=== PATIENT | female | born 1975 | race Hispanic/Latino ===

== ENCOUNTER 2021-09-21 17:47 | Inpatient (IN) | payer MEDICAID, SELFPAY ==
--- NOTE | ~2021-09-21 | CT_ITS ---
EXAMINATION: CT abdomen pelvis w con DATE: 09/21/2021 20:41 INDICATION: Lower abdominal pain. Back pain. TECHNIQUE: Computed tomography (CT) of the abdomen and pelvis was performed with 100 cc Omnipaque 350 intravenous contrast. Automated exposure control and iterative reconstruction technique were employe d. Exam dose: 1321.06 mGy-cm total exam DLP. COMPARISON: None. FINDINGS: Discoid atelectasis or scarring is noted in the lower lung zones, especially at the middle and left lower lobes, also involving the right lower lobe and lingula. There are bilateral patchy groundglass infiltrates. Normal heart size. No pericardial or pleural effusion. There is diffuse hepatic steatosis. No hepatic space-occupying mass lesion. The gallbladder is unrema rkable. No bile duct or pancreatic duct dilatation. No pancreatic mass lesion or calcification. Allison l splenic size. Normal morphology of the adrenal glands. No renal mass lesion or urinary tract calculus or hydroureteronephrosis. There is moderate diffuse th ickening of the urinary bladder wall. Retroverted uterus. Normal caliber of the abdominal aorta. No intraperitoneal or retroperitoneal or pelvic mass lesion or adenopathy or ascites. Diverticulosis of the sigmoid colon; no CT evidence of diverticulitis. No bowel obstruction or intrap eritoneal free air. There is a nonobstructed nonstrangulated herniation of transverse colon through a left parasagittal i nfraumbilical abdominal wall hernia. There is a lower right anterior pelvic wall large fat-containing hernia. Multiple additional smaller fat-containing ventral abdominal wall hernias are noted. There is a small fat-containing umbilical he rnia. There is a large right parasagittal complicated fluid collection beginning immediately caudal to the umbilicus, consistent with abscess, seroma or hematoma measuring in excess of 5 cm AP and transverse dimension and approximately 7 cm vertical dimension. There is fat stranding in the anterior lower abdominal and pelvic wall bilaterally. There are some shoddy bilateral inguinal lymph nodes. Included skeletal structures are unremarkable. IMPRESSION: Multiple ventral abdominal and pelvic wall fat-containing hernias Large complicated fluid collection consistent with abscess, seroma or hematoma along the right parasa gittal infraumbilical anterior abdominal/pelvic wall; inflammatory soft tissue stranding of the lower anterior abdominal and pelvic wall Hepatic steatosis Diverticulosis of the colon Reviewed, dictated and finalized at [facility]. Reviewed, dictated and finalized at [facility]. IMPRESSION: Multiple ventral abdominal and pelvic wall fat-containing hernias Large complicated fluid collection consistent with abscess, seroma or hematoma along the right parasagittal infraumbilical anterior abdominal/pelvic wall; inf lammatory soft tissue stranding of the lower anterior abdominal and pelvic wall Hepatic steatosis Diverticulosis of the colon
--- NOTE | ~2021-09-21 | XR_ITS ---
EXAMINATION: XR chest 1V portable INDICATION: Chest pain TECHNIQUE: Portable AP chest at 1046 hours COMPARISON: None FINDINGS: The lung volumes are low. There are patchy bilateral opacities. No pleural effusion or pneu mothorax is identified. The cardiomediastinal silhouette is normal. IMPRESSION: 1. Patchy bilateral airspace opacities which could reflect atelectasis versus pneumonia. Reviewed, dictated and finalized at [facility]. IMPRESSION: 1. Patchy bilateral airspace opacities which could reflect atelectasis versus p neumonia.
[2021-09-21 18:10] VITALS: BP 128/82; PULSE 98; RESP 16; TEMP 36.1; O2SAT 99
[2021-09-21 18:40] LABS: Basophils Absolute Auto 0.1 K/mm3 (0.0-0.1); Basophils Percent Auto 0.5 % (0.2-1.2); Eosinophils Percent Auto 0.4 % (0-4.4); Hematocrit 42.9 % (37.0-47.0); Hemoglobin 14.5 g/dL (12.0-15.0); Immature Granulocyte Absolute 0.04 K/mm3 (0.00-0.031); Immature Granulocyte Percent A 0.4 % (0-0.5); Lymphocytes Absolute Auto 1.19 K/mm3 (0.9-3.2); Lymphocytes Percent Auto 10.8 % (18.3-44.2); Mean Corpuscular HGB Conc 33.8 g/dl (32-36); Mean Corpuscular Hemoglobin 29.5 pg (26-34); Mean Corpuscular Volume 87.4 fl (80-100); Mean Platelet Volume 9.5 fl (7.4-10.4); Monocytes Absolute Auto 0.8 K/mm3 (0.1-0.6); Monocytes Percent Auto 7.7 % (2.6-8.5); Neutrophils Absolute Auto 8.8 K/mm3 (1.3-6.7); Neutrophils Percent Auto 80.2 % (45.5-73.1); Platelet Count Result 396 k/mm3 (150-375); Red Blood Count 4.91 M/mm3 (4.2-5.4); Red Cell Distribution Width 12.6 % (11.5-14.5)
[2021-09-21 18:44] LABS: Add Urine Microscopic? YES; Appearance Urine Cloudy (Clear); Bacteria Urine Trace /hpf; Bilirubin Urine Negative (Negative); Blood Urine Negative (Negative); Color Urine Yellow (Yellow); Glucose Urine UA 3+ mg/dL (Negative); Ketones Urine 1+ mg/dL (Negative); Leukocyte Esterase Ur Negative LEU/UL (Negative); Mucus Urine Rare /lpf; Nitrate Urine Negative (Negative); Protein Urine 2+ mg/dL (Negative); Squamous Epithelial Cell Urine Occasional /hpf (Few)
[2021-09-21 18:49] LABS: Specific Grav Ur 1.036 (1.001-1.035)
[2021-09-21 19:19] LABS: Alanine Aminotransferase 44 U/L (4-35); Albumin Level 4.8 g/dL (3.5-5.1); Alkaline Phosphatase 186 U/L (38-126); Anion Gap 11 mmol/L (8-16); Aspartate Amino Transferase 45 U/L (14-36); Bilirubin,Total 0.6 mg/dL (0.2-1.3); Blood Urea Nitrogen 8 mg/dL (7-17); Calcium 9.3 mg/dL (8.4-10.2); Carbon Dioxide 25 mmol/L (22-30); Chloride 99 mmol/L (98-107); Estimated CRCL calculation 126 ml/min; Estimated Glomerular Filt Rate > 60; Glucose 304 mg/dL (65-110); Lipase 34 U/L (23-300); Sodium 135 mmol/L (137-145)
--- NOTE | 2021-09-21 20:17 | ED.ABDPAIN ---
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 She developed pain 2 weeks ago. This pain has been constant and gradually worsen. She also states her pain has now radiated to her lower back pain. She has nausea and vomiting when her pain is severe. She denies fever , chills, or urinary symptoms. She notes she has a hernia from previous surgery and she is unsure if her pain is due to her hernia. Her last surgery was 5 years ago. She has taken tylenol and ibuprofen for her pain without relief. Her pain is currently 10/10. <Kavita Ch MD - Last Filed: 09/21/21 21:24> MD elicited complaint: abdominal pain <Kavita Ch MD - Last Filed: 09/21/21 21:24> Related Data Allergies/Adverse Reactions: Allergies Allergy/AdvReac Type Severity Reaction Status Date / Time No Known Allergies Allergy Verified 09/21/21 20:34 <Kavita Ch MD - Last Filed: 09/21/21 21:24> Review of Systems Review of Systems: All systems reviewed & are unremarkable except as noted in HPI and below <Kavita Ch MD - Last Filed: 09/21/21 21:24> [facility] Past Medical History Medical History: Medical History (Updated 09/21/21 @ 21:23 by Kavita Ch MD) DUB (dysfunctional uterine bleeding) <Kavita Ch MD - Last Filed: 09/21/21 21:24> Surgical History Surgical History: Surgical History (Updated 09/21/21 @ 20:17 by Kavita Ch MD) History of appendectomy <Kavita Ch MD - Last Filed: 09/21/21 21:24> Social History Social History: Social History (Updated 09/21/21 @ 20:18 by Kavita Ch MD) Smoking status: Never smoker <Kavita Ch MD - Last Filed: 09/21/21 21:24> Exam Const: General: no acute distress and alert <Kavita Ch MD - Last Filed: 09/21/21 21:24> Orientation/consciousness: patient oriented x3 <Kavita Ch MD - Last Filed: 09/21/21 21:24> Eyes: EOM: EOMs intact bilaterally <Kavita Ch MD - Last Filed: 09/21/21 21:24> Chest: Chest palpation & inspection: normal inspection of the chest <Kavita Ch MD - Last Filed: 09/21/21 21:24> Resp: Effort & Inspection: normal respiratory effort and no retractions <Kavita Ch MD - Last Filed: 09/21/21 21:24> Auscultation: clear to auscultation bilaterally <Kavita Ch MD - Last Filed: 09/21/21 21:24> Cardio: Rate: regular rate <Kavita Ch MD - Last Filed: 09/21/21 21:24> Rhythm: regular rhythm <Kavita Ch MD - Last Filed: 09/21/21 21:24> Heart sounds: no murmurs <Kavita Ch MD - Last Filed: 09/21/21 21:24> GI: GI Palp: Yes Soft to palpation, Yes Tenderness to palpation present (GI), No Guarding due to palpation present (GI), No Rigid due to palpation and Yes Hernia present (right paraumbilical hernia with tenderness and firmness) <Kavita Ch MD - Last Filed: 09/21/21 21:24> Other: PAtient has old surgical scar from her umbilicus midline to suprapubic, this area is warm, redness and TTP, no drainage <Kavita Ch MD - Last Filed: 09/21/21 21:24> Neuro: General: patient oriented x3, moves all extremities and CN's II-XI intact bilaterally <Kavita Ch MD - Last Filed: 09/21/21 21:24> Psych: Mental Status: mental status grossly normal <Kavita Ch MD - Last Filed: 09/21/21 21:24> Affect: normal affect <Kavita Ch MD - Last Filed: 1
[2021-09-21] MEDS: ONDANSETRON INJ 4 MG/2 ML VIAL IV PUSH (20:26)
[2021-09-21] MEDS: HYDROmorphone HCL INJ (*CRX) 1 MG/ML SYR IV PUSH (20:27)
[2021-09-21] MEDS: LACTATED RINGERS 1,000 ML 999 ML IV CONT (20:31)
[2021-09-21 20:36] VITALS: BP 122/78; PULSE 77; RESP 16; O2SAT 99
[2021-09-21 20:44] LABS: Lactic Acid Reflex 1.6 mmol/L (0.7-2.1)
--- NOTE | 2021-09-21 21:52 | PM.IMHP ---
H&P: HPI History of Present Illness Date/Time: 09/21/21 21:53 Chief Complaint: Abdominal pain Narrative: This is a 45-year-old female with past medical history significant for obesity, ventral hernia repair with wound infection and wound dehiscence status post wound VAC this was roughly 5 years ago. Patient now returns to the emergency room with abdominal pain, small bowel movements, chills, fevers, poor appetite, abdominal wall tenderness with redness ,nausea and vomiting this has been going on for the last 2 weeks or so, she is able to pass flatus, but she has not been eating much. Patient denies any shortness of breath, cough or sputum production. She has been taking [id number] medications for pain with no relieve which has become progressively worse prompting her to come to the emergency room. Preliminary workup was significant for a glucose of 300 alk phos of 186 AST and ALT of 45 and 44 respectively WBC with leukocyte count of 11,000, a CT of abdomen and pelvis was significant for Multiple ventral abdominal and pelvic wall fat-containing hernias,large complicated fluid collection consistent with abscess, seroma or hematoma along the right parasagittal infraumbilical anterior abdominal/pelvic wall; inflammatory soft tissue stranding of the lower anterior abdominal and pelvic wall,hepatic steatosis,diverticulosis of the colon. Decision has been made to admit the patient for further management, evaluation and treatment. Review of Systems Review of Systems: Abdominal wall tenderness, redness, nausea ,vomiting ,constipation, fevers, chills. Constitutional: Constitutional: Reports chills, Reports fever(s), Reports malaise and Reports poor appetite Eyes: Eyes: Denies change in vision ENT: Denies dysphagia, Denies nasal congestion, Denies nasal discharge, Denies nasal obstruction and Denies odynophagia Cardiovascular: Cardiovascular: Denies irregular heart rhythm, Denies claudication, Denies lightheadedness, Denies radiating jaw, neck or arm pain, Denies palpitations, Denies dyspnea, Denies dyspnea on exertion and Denies orthopnea Respiratory: Respiratory: Denies cough and Denies dyspnea Gastrointestinal: Gastrointestinal: Reports constipation (Having small bowel movement), Reports nausea and Reports vomiting Genitourinary: Genitourinary: Denies dysuria and Denies vaginal discharge Musculoskeletal: Musculoskeletal: Reports back pain, Denies arthralgias and Denies joint swelling Comments: Pain radiates to the back Integumentary/Breasts: Skin/Breast: Reports erythema (Midline lower abdomen) Neurologic: Denies focal weakness and Denies Sensory deficit (Neuro) Psychiatric: Psychiatric: Reports no additional psychiatric complaints and Reports as per HPI Endocrine: Comments: Uncontrolled blood sugars Hematologic/Lymphatic: Hematologic/Lymphatic: Reports no additional hematologic/lymphatic complaints and Reports as per HPI Allergic/Immunologic: Allergic/Immunologic: Reports no additional allergic/immunologic complaints and Reports as per HPI PMFSH Past Medical History Medical History (Updated 09/22/21 @ 03:54 by Pancho Silva MD) DUB (dysfunctional uterine bleeding) Surgical History Surgical History (Updated 09/21/21 @ 20:17 by Kavita Ch MD) History of appendectomy Social History Social History (Updated 09/21/21 @ 20:18 by Kavita Ch MD) Smoking status: Never smoker Alcohol intake: never Substance use: never Spiritual care concerns: No Meds Home Medications and Allergies Allergies Allergy/AdvReac Type Severity Reaction Status Date / Time No Known Allergies Allergy Verified 09/21/21 20:34 Vital Signs Vital Signs - 24 hr 09/21/21 18:10 09/21/21 20:36 Temperature 97 F L Pulse Rate 98 77 Respiratory Rate 16 16 Blood Pressure 128/82 122/78 Pulse Oximetry 99 99 Exam Narrative: Patient is laying in gurney Const: General: cooperative, comfortable, no acute distress,
[2021-09-21 22:29] VITALS: BP 126/74; PULSE 77; RESP 18; O2SAT 99
--- NOTE | 2021-09-21 23:09 | ADMGEN ---
This patient, Rachel Oliva, was admitted to 2 Medical Room 259-01. Patient/family oriented to hospital policies and general routines including ID bracelet, bed and alarms, visiting hours, pain management, procedures, bathroom and other care routines, personal items, smoking policy, room service/diet, and visiting hours. Information on how to activate the Rapid Response Team has been discussed. Patient/Family are encouraged to report perceived risks to care and to ask questions if they do not understand what they are told or what they should do. *Stratus utilized during admission and kept at bedside
[2021-09-21 23:15] VITALS: BP 128/68; PULSE 93; RESP 16; TEMP 36.8; O2SAT 94
[2021-09-21 23:16] VITALS: BMI 37.9
[2021-09-22] MEDS: SODIUM CHLORIDE 0.9% IV 1,000 ML 125 ML IV CONT ×3 (00:17→22:38)
[2021-09-22] MEDS: HYDROmorphone HCL INJ (*CRX) 1 MG/ML SYR IV PUSH ×2 (00:17→17:20)
[2021-09-22] MEDS: ONDANSETRON INJ 4 MG/2 ML VIAL IV PUSH ×2 (05:12→17:50)
[2021-09-22 05:15] LABS: Basophils Percent Auto 0.3 % (0.2-1.2); Eosinophils Percent Auto 0.2 % (0-4.4); Hematocrit 36.3 % (37.0-47.0); Hemoglobin 12.2 g/dL (12.0-15.0); Immature Granulocyte Absolute 0.07 K/mm3 (0.00-0.031); Immature Granulocyte Percent A 0.6 % (0-0.5); Lymphocytes Absolute Auto 1.63 K/mm3 (0.9-3.2); Mean Corpuscular HGB Conc 33.6 g/dl (32-36); Mean Corpuscular Hemoglobin 29.4 pg (26-34); Mean Corpuscular Volume 87.5 fl (80-100); Mean Platelet Volume 9.6 fl (7.4-10.4); Monocytes Absolute Auto 1.2 K/mm3 (0.1-0.6); Monocytes Percent Auto 9.5 % (2.6-8.5); Neutrophils Absolute Auto 9.6 K/mm3 (1.3-6.7); Neutrophils Percent Auto 76.4 % (45.5-73.1); Platelet Count Result 374 k/mm3 (150-375); Red Blood Count 4.15 M/mm3 (4.2-5.4); Red Cell Distribution Width 12.6 % (11.5-14.5); White Blood Count 12.6 K/mm3 (4.5-10.0)
[2021-09-22 05:36] LABS: Alanine Aminotransferase 30 U/L (4-35); Albumin Level 2.7 g/dL (3.5-5.1); Alkaline Phosphatase 131 U/L (38-126); Anion Gap 10 mmol/L (8-16); Aspartate Amino Transferase 26 U/L (14-36); Bilirubin,Total 0.7 mg/dL (0.2-1.3); Blood Urea Nitrogen 6 mg/dL (7-17); Calcium 8.3 mg/dL (8.4-10.2); Carbon Dioxide 22 mmol/L (22-30); Chloride 98 mmol/L (98-107); Estimated CRCL calculation 152 ml/min; Estimated Glomerular Filt Rate > 60; Glucose 285 mg/dL (65-110); Potassium 3.9 mmol/L (3.4-5.0); Sodium 130 mmol/L (137-145)
[2021-09-22 06:00] VITALS: BP 122/66; PULSE 92; RESP 18; TEMP 37.5; O2SAT 92
[2021-09-22 06:57] LABS: Glucose Point of Care 254 mg/dl (65-105)
[2021-09-22] MEDS: ENOXAPARIN 40 MG/0.4 ML SYRINGE SUB-Q (09:21)
[2021-09-22] MEDS: INSULIN ASPART (*BKC) 100 UNITS/ML SUB-Q ×3 (09:28→17:54)
[2021-09-22 11:31] LABS: Glucose Point of Care 252 mg/dl (65-105)
[2021-09-22 14:25] VITALS: BP 108/59; PULSE 86; RESP 16; TEMP 38.2; O2SAT 95
[2021-09-22 14:36] VITALS: TEMP 38.2
--- NOTE | 2021-09-22 14:47 | PM.IMPN ---
Progress Note: A&P Assessment and Plan (1) Abscess of postoperative wound of abdominal wall: Code(s): T81.49XA - Infection following a procedure, other surgical site, initial encounter Status: Acute Assessment and Plan: -Patient with appendectomy 5 years ago w/ complications in the postop period with wound infection and dehiscence -Now patient comes back with abdominal pain found to have complex abscess formation and multiple hernias -WBC 12.6, low grade temp 100.7 - Meets SIRS criteria at this time -NPO, IV Abx Vanc and Imipenem, blood cultures, IVF resuscitation, pain control -Further management per general surgery (2) Uncontrolled diabetes mellitus: Code(s): E11.65 - Type 2 diabetes mellitus with hyperglycemia Status: Acute Assessment and Plan: -NPO -Glucose today 285 -Insulin sliding scale increase to moderate dose -Accu-Cheks q.6 -Check A1c -Continue to monitor (3) Elevated liver enzymes: Code(s): R74.8 - Abnormal levels of other serum enzymes Status: Acute Assessment and Plan: -Alk phos 186, ASST of 45, ALT 44 -Check hepatitis panel (4) Sepsis: Code(s): A41.9 - Sepsis, unspecified organism Status: Acute Assessment and Plan: -WBC 12.6, low grade temp 100.7 - Meets SIRS criteria at this time -See above for further details and management Subjective Date/time seen: 09/22/21 10:47 Pt is a 45 yo female w/ hx of DM who presented to ED for abdominal pain x 2 weeks and was subsequently admitted for abdominal wall abscess. She was started on IV abx awaiting general surgery consult. Currently she feels okay, a little better than last night but still nauseated and still having lower abdominal pain which she rates as 5/10. Had 1 episode of vomiting yesterday, none today. Reports chills, no fever or bodyaches. She states she is diabetic and was prescribed oral medication (she does not know the name) but did not start taking it until 4-5 weeks ago. Per H&P and ER note, pt supposedly had ventral hernia repair 5 years ago. When I spoke w/ patient today through data virtualization consultant I clarified that she had an appendectomy 5 years ago with post op complications at which point they noted several hernias but did not repair them. The only abdominal surgery she has had was the appendectomy. Review of Systems Review of Systems: General: Denies fevers, + chills, + fatigue Eyes: Denies vision changes ENT: Denies sore throat Respiratory: Denies cough or shortness of breath Cardiovascular: Denies chest pain, palpitations, or lower extremity edema Gastrointestinal: + abdominal pain, + vomiting, no diarrhea Genitourinary: Denies dysuria or urinary frequency Musculoskeletal: Denies back pain Neurological: Denies headache Integumentary: Denies rash Exam Narrative: General: No acute distress, mildly ill appearing, obese Eyes: PERRL, no scleral icterus HEENT: NCAT, external ears normal, MMM, normal pharynx Respiratory: No respiratory distress, Lungs CTA bilaterally, no wheezing Cardiovascular: RRR, no murmur Abdominal: Soft, non distended, moderate ttp diffusely, no rebound or guarding Musculoskeletal: Moves all 4 extremities, no edema Neurological: A/Ox3, speech normal, no facial asymmetry Skin: Warm, dry, no rashes Psychiatric: Normal affect, normal mood Objective Data Vital Signs Vital Signs: Vital Signs - 24 hr 09/21/21 18:10 09/21/21 20:36 09/21/21 22:29 Temperature 97 F L Pulse Rate 98 77 77 Respiratory Rate 16 16 18 Blood Pressure 128/82 122/78 126/74 Pulse Oximetry 99 99 99 09/21/21 23:15 09/22/21 06:00 09/22/21 14:25 Temperature 98.3 F 99.5 F 100.7 F H Pulse Rate 93 92 86 Respiratory Rate 16 18 16 Blood Pressure 128/68 122/66 108/59 L Pulse Oximetry 94 92 95 09/22/21 14:36 Temperature 100.7 F H Pulse Rate Respiratory Rate Blood Pressure Pulse Oximetry Intake/Output Intake/Output: Intake & Output
[2021-09-22 16:12] VITALS: TEMP 36.8
--- NOTE | 2021-09-22 16:19 | PM.CNGS ---
Assessment and Plan Assessment and plan (1) Abdominal wall abscess: Code(s): L02.211 - Cutaneous abscess of abdominal wall Status: Acute Assessment and Plan: CT scan reviewed and discussed with the patient in detail via the motorcycle mechanic. There is a fluid collection in the lower abdomen that appears to be anterior to the fascia. Clinically, this appears more likely to be an abscess. Less likely a seroma or hematoma. This does not appear to be related to her previous surgery which was 5-6 years ago, but I have requested records from [place], [place] to confirm her surgical history since she was a poor historian. There is a fluctuant area just below the umbilicus that would be appropriate for incision and drainage. I have discussed this with Dr. Velez. He plans on evaluating the patient this afternoon as well. We can consider potentially doing an I&D at the bedside versus having Radiology attempt aspirating this fluid collection and leaving a percutaneous drain in place if the fluid is purulent. Would also plan for cultures. I also discussed what to expect with packing and wound care after an I&D of this large of an abscess if that is what we decide to proceed with. For now, continue broad-spectrum IV antibiotics and repeat labs in the morning. Thank you for allowing us to see the patient in consultation and we will continue to follow along with you. (2) Sepsis: Code(s): A41.9 - Sepsis, unspecified organism Status: Acute Assessment and Plan: SIRS criteria met with leukocytosis and fever with known infection. Secondary to #1 above. Continue broad-spectrum IV abx and IV fluids. Monitor labs. See plan above. (3) Elevated liver enzymes: Code(s): R74.8 - Abnormal levels of other serum enzymes Status: Acute Assessment and Plan: Slight elevation in LFTs. CT suggests hepatic steatosis. Hepatitis panel ordered by Hospitalist. (4) Uncontrolled diabetes mellitus: Code(s): E11.65 - Type 2 diabetes mellitus with hyperglycemia Status: Acute Assessment and Plan: Glucose 200-300's since admission. HgbA1C ordered. I discussed the importance of glycemic control with the patient to help with prevention of future complications or infections. Management per Hospitalist. (5) Hernia, ventral: Code(s): K43.9 - Ventral hernia without obstruction or gangrene Status: Acute Assessment and Plan: Multiple ventral hernias, one with transverse colon that does not appear to be obstructed/incarcerated. Other ventral hernias appear to be containing fat on the CT scan. The largest bulge I feel on exam is in the left lower quadrant but evaluating her hernias are difficult at this time due to her swelling and pain from the abscess. No emergent surgical intervention needed at this time, but we could discuss options for surgical repair in the future once her infection has resolved. (6) Obesity (BMI 30-39.9): Code(s): E66.9 - Obesity, unspecified Status: Acute Assessment and Plan: Encouraged weight loss and lifestyle changes. Additional Plan I have discussed the patient's case and plan of care with Dr. Velez. History of Present Illness Consult details Consult date: 09/22/21 Reason for consult: other (Abdominal wall abscess) Requesting physician: Kavita Ch MD Narrative: This is a 45-year-old Jordanian-speaking female with a history of type 2 diabetes mellitus, who presented to the ER for evaluation of lower abdominal pain. She is primarily Jordanian-speaking, therefore I used the [employer] motorcycle mechanic for our entire conversation and while compiling history. The motorcycle mechanic's name was Sandra. No family was at the bedside. The patient was fairly confused when gathering her surgical history. She believes that she had what sounds like an open appendectomy, with a large lower midline scar, about 5-6 years ago in [place], [place]. She states that she does not remember much from that time and was told
[2021-09-22 17:56] LABS: Glucose Point of Care 204 mg/dl (65-105)
[2021-09-22 21:39] LABS: Glucose Point of Care 192 mg/dl (65-105)
[2021-09-22 22:00] VITALS: BP 134/82; PULSE 87; RESP 16; TEMP 36.3; O2SAT 94
[2021-09-23 05:34] LABS: Basophils Percent Auto 0.4 % (0.2-1.2); Eosinophils Absolute Auto 0.1 K/mm3 (0-0.3); Eosinophils Percent Auto 0.5 % (0-4.4); Hematocrit 35.8 % (37.0-47.0); Hemoglobin 12.1 g/dL (12.0-15.0); Immature Granulocyte Absolute 0.04 K/mm3 (0.00-0.031); Immature Granulocyte Percent A 0.4 % (0-0.5); Lactic Acid Reflex 0.9 mmol/L (0.7-2.1); Lymphocytes Absolute Auto 1.83 K/mm3 (0.9-3.2); Lymphocytes Percent Auto 16.9 % (18.3-44.2); Mean Corpuscular HGB Conc 33.8 g/dl (32-36); Mean Corpuscular Hemoglobin 29.5 pg (26-34); Mean Corpuscular Volume 87.3 fl (80-100); Mean Platelet Volume 9.6 fl (7.4-10.4); Monocytes Absolute Auto 0.9 K/mm3 (0.1-0.6); Monocytes Percent Auto 8.4 % (2.6-8.5); Neutrophils Absolute Auto 7.9 K/mm3 (1.3-6.7); Neutrophils Percent Auto 73.4 % (45.5-73.1); Platelet Count Result 391 k/mm3 (150-375); Red Cell Distribution Width 12.8 % (11.5-14.5); White Blood Count 10.8 K/mm3 (4.5-10.0)
[2021-09-23 05:37] LABS: Anion Gap 8 mmol/L (8-16); Blood Urea Nitrogen 6 mg/dL (7-17); Calcium 7.9 mg/dL (8.4-10.2); Carbon Dioxide 24 mmol/L (22-30); Chloride 99 mmol/L (98-107); Estimated CRCL calculation 152 ml/min; Estimated Glomerular Filt Rate > 60; Glucose 229 mg/dL (65-110); Potassium 3.1 mmol/L (3.4-5.0); Sodium 131 mmol/L (137-145)
[2021-09-23 06:00] VITALS: BP 122/77; PULSE 87; RESP 18; TEMP 36.3; O2SAT 96
[2021-09-23 07:17] LABS: Hepatitis B Surface Antigen Negative (Negative)
[2021-09-23 07:25] LABS: HAV RESULT Negative (Negative); Hepatitis B Core IgM Result Negative (Negative)
[2021-09-23 07:33] LABS: Hepatitis C Virus Antibody Negative (Negative)
[2021-09-23 07:48] LABS: Hemoglobin A1C 11.7 % (<5.7)
[2021-09-23 08:03] LABS: Glucose Point of Care 195 mg/dl (65-105)
[2021-09-23] MEDS: SILVER NITRATE (*SP) STICK 1 EACH TOPICAL (08:35)
[2021-09-23] MEDS: ENOXAPARIN 40 MG/0.4 ML SYRINGE SUB-Q (08:37)
--- NOTE | 2021-09-23 11:34 | P.OP_ITS ---
Procedure Note - Detailed Date of Procedure 09/23/21 Pre-op Diagnosis 1. Superficial Abdominal Wall Abscess 2. Diabetes Mellitus Post-op Diagnosis same Procedure Performed Incision and drainage of abscess of the skin and subcutaneous tissues just below and to the right of the umbilicus and her old midline appendectomy scar Surgeon Anton Velez MD Aitchbone Breaker none Anesthesia local Indications Developing abscess just inferior and to the right of the umbilicus Findings Fairly large cavity underneath skin that was blistering in a triangular 2 x 3 cm area to the right of her midline scar from previous appendectomy. Underneath this area after incised there was a cavity which basically would take pulled and entire on folded 4 x 4. There was significant greenish yellow pus. Description of Procedure The area of the abscess was marked and time-out performed confirming patient and site of required I and D on the abdomen just below and slightly to the right of her umbilicus. Following this the area was prepped with Betadine. The area was draped and local anesthetic infiltrated directly over the area of swelling and abscess formation. After allowing the local anesthetic to work a direct incision was made over the central portion of the area of abscess. Once an opening was established and a swab was used to obtain a Gram stain and C&S. This was sent to the lab for testing. Following this the area was packed with a sterile unfolded 4 x 4. The area was then covered with 4x4s and tape. Implants none Estimated Blood Loss 2 Drains No Packing Yes (Once sterile on folded 4 x 4.) Pathology other (Swab for Gram stain, aerobic and anaerobic C&S) Complications No immediate complications Condition stable Disposition floor (Procedure done at bedside without complication)
[2021-09-23 12:03] LABS: Glucose Point of Care 220 mg/dl (65-105)
[2021-09-23] MEDS: INSULIN ASPART (*BKC) 100 UNITS/ML SUB-Q ×2 (12:17→16:41)
[2021-09-23] MEDS: HYDROmorphone HCL INJ (*CRX) 1 MG/ML SYR IV PUSH (12:18)
[2021-09-23 14:00] VITALS: BP 118/64; PULSE 78; RESP 18; TEMP 36.3; O2SAT 97
--- NOTE | 2021-09-23 14:38 | PM.IMPN ---
Progress Note: A&P Assessment and Plan (1) Abdominal wall abscess: Code(s): L02.211 - Cutaneous abscess of abdominal wall Status: Acute Assessment and Plan: -Patient with appendectomy 5 years ago w/ complications in the postop period with wound infection and dehiscence -Now patient comes back with abdominal pain found to have complex abscess formation and multiple hernias -WBC 12.6, low grade temp 100.7 - SIRS criteria met -Continue IV Abx Vanc and Imipenem, blood cultures, IVF resuscitation, pain control -Bedside I&D performed at bedside by general surgery, see procedure note for further details. -Wound culture sent -Leukocytosis improving. Fever and tachycardia resolved. (2) Uncontrolled diabetes mellitus: Code(s): E11.65 - Type 2 diabetes mellitus with hyperglycemia Status: Acute Assessment and Plan: -Glucose continues to be above 200 despite initiating moderate sliding scale. Will add 10 units of Lantus QHS. -Accu-Cheks q.6 -A1c 11.7 -Will continue with aggressive management in attempt to promote wound healing -Consult placed to Pathology Specialist (3) Elevated liver enzymes: Code(s): R74.8 - Abnormal levels of other serum enzymes Status: Acute Assessment and Plan: -Alk phos 186, ASST of 45, ALT 44 initial labs -CT suggests hepatic steatosis -Liver enzymes have come down today to normal range -Hepatitis panel negative (4) Sepsis: Code(s): A41.9 - Sepsis, unspecified organism Status: Acute Assessment and Plan: -WBC 12.6, low grade temp 100.7 - Meets SIRS criteria at this time -Leukocytosis improving. Fever and tachycardia resolved -See above for further details and management (5) Hernia, ventral: Code(s): K43.9 - Ventral hernia without obstruction or gangrene Status: Acute Assessment and Plan: -Multiple ventral hernias, one with transverse colon that does not appear to be obstructed/incarcerated. Other ventral hernias appear to be containing fat on the CT scan. -Per surgery, no emergent surgical intervention needed at this time, but could discuss options for surgical repair in the future once her infection has resolved on an outpatient basis. -Further management outpatient per general surgery. (6) Obesity (BMI 30-39.9): Code(s): E66.9 - Obesity, unspecified Status: Acute Assessment and Plan: Encouraged weight loss and lifestyle changes. Subjective Date/time seen: 09/23/21 14:38 Interval history: Pt is a 45 yo female w/ hx of DM who presented to ED for abdominal pain x 2 weeks and was subsequently admitted for abdominal wall abscess. She had a bedside I&D performed today by Dr. Velez. She states her pain has improved today. No N/V. No fevers overnight. Review of Systems Review of Systems: General: Denies fevers, no chills, + fatigue Eyes: Denies vision changes ENT: Denies sore throat Respiratory: Denies cough or shortness of breath Cardiovascular: Denies chest pain, palpitations, or lower extremity edema Gastrointestinal: + abdominal pain, no vomiting, no diarrhea Genitourinary: Denies dysuria or urinary frequency Musculoskeletal: Denies back pain Neurological: Denies headache Integumentary: Denies rash Exam Narrative: General: No acute distress, mildly ill appearing, obese Eyes: PERRL, no scleral icterus HEENT: NCAT, external ears normal, MMM Respiratory: No respiratory distress, Lungs CTA bilaterally, no wheezing Cardiovascular: RRR, no murmur Abdominal: Soft, non distended, mild ttp suprapubic and bilateral lower quadrants, no rebound or guarding. Dressing in place C/D/I. Musculoskeletal: Moves all 4 extremities, no edema Neurological: A/Ox3, speech normal, no facial asymmetry Skin: Warm, dry, no rashes Psychiatric: Normal affect, normal mood Objective Data Vital Signs Vital Signs: Vital Signs - 24 hr 09/22/21 16:12 09/22/21 22:00 09/23/21 06
[2021-09-23 16:27] LABS: Glucose Point of Care 318 mg/dl (65-105)
[2021-09-23 21:15] VITALS: BP 106/66; PULSE 73; RESP 16; TEMP 36.9; O2SAT 94
[2021-09-23] MEDS: INSULIN GLARGINE (*BKC) 100 UNITS/ML 10 UNITS SUB-Q (21:23)
[2021-09-24] MEDS: MORPHINE SULFATE (*CRX) 2 MG/ML INJ IV PUSH (02:26)
[2021-09-24 02:35] LABS: Glucose Point of Care 309 mg/dl (65-105)
[2021-09-24 06:00] VITALS: BP 117/72; PULSE 68; RESP 16; TEMP 36.6; O2SAT 96
[2021-09-24 07:49] LABS: Glucose Point of Care 233 mg/dl (65-105)
[2021-09-24] MEDS: INSULIN ASPART (*BKC) 100 UNITS/ML SUB-Q ×3 (07:51→16:46)
[2021-09-24] MEDS: ENOXAPARIN 40 MG/0.4 ML SYRINGE SUB-Q (07:55)
[2021-09-24 09:51] LABS: Basophils Absolute Auto 0.1 K/mm3 (0.0-0.1); Basophils Percent Auto 0.7 % (0.2-1.2); Eosinophils Absolute Auto 0.2 K/mm3 (0-0.3); Eosinophils Percent Auto 2.5 % (0-4.4); Hematocrit 37.7 % (37.0-47.0); Hemoglobin 12.9 g/dL (12.0-15.0); Immature Granulocyte Percent A 1.4 % (0-0.5); Lymphocytes Absolute Auto 1.78 K/mm3 (0.9-3.2); Lymphocytes Percent Auto 25.1 % (18.3-44.2); Mean Corpuscular HGB Conc 34.2 g/dl (32-36); Mean Corpuscular Hemoglobin 29.1 pg (26-34); Mean Corpuscular Volume 85.1 fl (80-100); Mean Platelet Volume 9.5 fl (7.4-10.4); Monocytes Absolute Auto 0.7 K/mm3 (0.1-0.6); Monocytes Percent Auto 10.4 % (2.6-8.5); Neutrophils Absolute Auto 4.2 K/mm3 (1.3-6.7); Neutrophils Percent Auto 59.9 % (45.5-73.1); Platelet Count Result 442 k/mm3 (150-375); Red Blood Count 4.43 M/mm3 (4.2-5.4); Red Cell Distribution Width 12.7 % (11.5-14.5); White Blood Count 7.1 K/mm3 (4.5-10.0)
[2021-09-24 09:56] LABS: Anion Gap 5 mmol/L (8-16); Blood Urea Nitrogen 6 mg/dL (7-17); Calcium 8.5 mg/dL (8.4-10.2); Carbon Dioxide 29 mmol/L (22-30); Chloride 100 mmol/L (98-107); Estimated CRCL calculation 152 ml/min; Estimated Glomerular Filt Rate > 60; Glucose 300 mg/dL (65-110); Potassium 3.2 mmol/L (3.4-5.0); Sodium 134 mmol/L (137-145)
[2021-09-24 10:13] LABS: Vancomycin Trough 13.8 ug/mL (10.0-20.0)
--- NOTE | 2021-09-24 10:34 | PM.IMPN ---
Progress Note: A&P Assessment and Plan (1) Abdominal wall abscess: Code(s): L02.211 - Cutaneous abscess of abdominal wall Status: Acute Assessment and Plan: -Patient with appendectomy 5 years ago w/ complications in the postop period with wound infection and dehiscence -Now patient comes back with abdominal pain found to have complex abscess formation and multiple hernias -WBC 12.6, low grade temp 100.7 - SIRS criteria met - Started on IV Abx Vanc and Imipenem, blood cultures, IVF resuscitation, pain control -Bedside I&D performed at bedside by general surgery, see procedure note for further details. -Wound culture sent, pending -Blood cultures prelim negative -Leukocytosis resolved. Fever and tachycardia resolved. IVF stopped. (2) Uncontrolled diabetes mellitus: Code(s): E11.65 - Type 2 diabetes mellitus with hyperglycemia Status: Acute Assessment and Plan: -Glucose continues to be above 200 despite initiating moderate sliding scale and addition of 10 units of Lantus QHS. Will try adding Metformin 500 mg BID. -Accu-Cheks q.6 -A1c 11.7 -Will continue with aggressive management in attempt to promote wound healing -Consult placed to [employer] (3) Elevated liver enzymes: Code(s): R74.8 - Abnormal levels of other serum enzymes Status: Acute Assessment and Plan: -Alk phos 186, ASST of 45, ALT 44 initial labs -CT suggests hepatic steatosis -Liver enzymes have come down today to normal range -Hepatitis panel negative (4) Sepsis: Code(s): A41.9 - Sepsis, unspecified organism Status: Acute Assessment and Plan: -WBC 12.6, low grade temp 100.7 - Meets SIRS criteria at this time -Leukocytosis improving. Fever and tachycardia resolved -See above for further details and management -Leukocytosis resolved, prelim blood cultures negative (5) Hernia, ventral: Code(s): K43.9 - Ventral hernia without obstruction or gangrene Status: Acute Assessment and Plan: -Multiple ventral hernias, one with transverse colon that does not appear to be obstructed/incarcerated. Other ventral hernias appear to be containing fat on the CT scan. -Per surgery, no emergent surgical intervention needed at this time, but could discuss options for surgical repair in the future once her infection has resolved on an outpatient basis. -Further management outpatient per general surgery (6) Obesity (BMI 30-39.9): Code(s): E66.9 - Obesity, unspecified Status: Acute Assessment and Plan: Encouraged weight loss and lifestyle changes. (7) Chest pain: Code(s): R07.9 - Chest pain, unspecified Status: Acute Assessment and Plan: -Reports chest discomfort and sob w/ exertion, pt initially states started yesterday but also notes it has been going on intermittently for awhile -No pain or sob at rest. Reports cp and sob are very mild. -Check EKG, serial trops, CXR -Consider cardiology consult vs PE workup depending on results of initial workup. She is 99% on RA, no tachycardia, no tachypnea. Suspect could be secondary to body habitus/deconditioning however she does have uncontrolled diabetes and does not follow up regularly with a pcp. Subjective Date/time seen: 09/24/21 10:35 Interval history: Pt is a 45 yo female w/ hx of DM who presented to ED for abdominal pain x 2 weeks and was subsequently admitted for abdominal wall abscess. She had a bedside I&D performed today by Dr. Velez. She states her pain has improved today. No N/V. No fevers overnight. Overall she is feeling much better, however she does now note chest pain and sob with exertion since yesterday afternoon. No pain or sob at rest. Review of Systems Review of Systems: General: Denies fevers, no chills, + fatigue Eyes: Denies vision changes ENT: Denies sore throat Respiratory: + cough (chronic x years), + shortness of breath [facility]
--- NOTE | 2021-09-24 10:35 | ECG_ITS ---
Measurements Intervals [place] Rate: 68 P: 33 RI: 158 QRS: 25 QRSD: 100 T: -13 QT: 402 QTc: 430 Interpretive Statements SINUS RHYTHM DELAYED PRECORDIAL R/S TRANSITION BORDERLINE ST-T WAVE ABNORMALITY- INFERIOR LEADS BASELINE WANDER- I, II, III, V3 BORDERLINE ECG Electronically Signed On 09-24-2021 11:46:03 CDT by Bishnu Metz D.O.
[2021-09-24 11:30] LABS: Troponin I < 0.012 ng/mL (0.000-0.034)
[2021-09-24 11:48] LABS: Glucose Point of Care 317 mg/dl (65-105)
--- NOTE | 2021-09-24 11:50 | PM.PNGS ---
Progress Note: A&P Assessment and Plan (1) Abdominal wall abscess: Code(s): L02.211 - Cutaneous abscess of abdominal wall Status: Acute Assessment and Plan: s/p I and D, cont local wound care, cont abx, ok to dc home from surgical standpoint (2) Sepsis: Code(s): A41.9 - Sepsis, unspecified organism Status: Acute Assessment and Plan: resolved s/p I and D, cont abx, wound care (3) Hernia, ventral: Code(s): K43.9 - Ventral hernia without obstruction or gangrene Status: Acute Assessment and Plan: no acute issues, will followup as outpt Subjective Subjective Date/Time Seen: 09/24/21 11:50 feels better, pain/pressure improved Review of Systems Review of Systems: All systems reviewed & are unremarkable except as noted in HPI and below Exam Const: General: cooperative, comfortable and no acute distress Resp: Auscultation: clear to auscultation bilaterally Cardio: Rate: regular rate Rhythm: regular rhythm GI: Inspection: normal to inspection, non-distended and incision GI Palp: Yes Soft to palpation, Yes Tenderness to palpation present (GI), No Guarding due to palpation present (GI) and No Rigid due to palpation Other: wound - packed, mod serous drainage, mild TTP Objective Data Vital Signs Vital Signs: Vital Signs - 24 hr 09/23/21 14:00 09/23/21 21:15 09/24/21 06:00 Temperature 36.3 C L 36.9 C 36.6 C Pulse Rate 78 73 68 Respiratory Rate 18 16 16 Blood Pressure 118/64 106/66 117/72 Pulse Oximetry 97 94 96 Intake/Output Intake/Output: Intake & Output 09/21/21 09/22/21 09/23/21 09/24/21 23:59 23:59 23:59 23:59 Intake Total 1100 3600 3120 1570 Output Total 1700 2600 Balance 1100 5065 509 0547 Meds/Results Medications: Active Medications Generic Name Dose Route Start Last Admin Trade Name Freq PRN Reason Stop Dose Admin Enoxaparin Sodium 40 mg 09/22/21 09:00 09/24/21 07:55 Enoxaparin 40 Mg/0.4 Ml Syringe SUB-Q 40 mg DAILY JOAN Administration Hydromorphone HCl 1 mg 09/22/21 15:17 09/23/21 12:18 Hydromorphone Hcl Inj (*Crx) 1 Mg/Ml Syr IV PUSH 1 mg Q4H PRN Administration Pain Rated 7-10 Imipenem/Cilastatin Sodium 500 mg in 100 mls @ 300 mls/hr 09/22/21 04:00 09/24/21 09:31 Primaxin 500 Mg/D5w 100 Ml IVPB Infused Q6H JOAN Infusion Vancomycin HCl 1,750 mg in 500 mls @ 250 mls/hr 09/24/21 10:00 09/24/21 11:16 Vancomycin 1,750 Mg/D5w 500 Ml IVPB 250 mls/hr Q8H JOAN Administration Insulin Aspart 3 - 6 units 09/22/21 17:00 09/24/21 07:51 Insulin Aspart (*Bkc) 100 Units/Ml SUB-Q 3 units TIDWM JOAN Administration Protocol Insulin Glargine 10 units 09/23/21 21:00 09/23/21 21:23 Insulin Glargine (*Bkc) 100 Units/Ml SUB-Q 10 units HS JOAN Administration Metformin HCl 500 mg 09/24/21 17:00 Metformin Hcl 500 Mg Tablet PO BIDWM JOAN Morphine Sulfate 2 mg 09/22/21 15:15 09/24/21 02:26 Morphine Sulfate (*Crx) 2 Mg/Ml Inj IV PUSH 2 mg Q4H PRN Administration Pain Rated 4-6 Ondansetron HCl 4 mg 09/21/21 21:51 09/22/21 17:50 Ondansetron Inj 4 Mg/2 Ml Vial IV PUSH 4 mg Q4H PRN Administration Nausea Radiology Results: ITS Impressions Abdomen/Pelvis CT 09/21/21 20:44 IMPRESSION: Multiple ventral abdominal and pelvic wall fat-containing hernias Large complicated fluid collection consistent with abscess, seroma or hematoma along the right parasagittal infraumbilical anterior abdominal/pelvic wall; inflammatory soft tissue stranding of the lower anterior abdominal and pelvic wall Hepatic steatosis Diverticulosis of the colon Chest X-Ray 09/24/21 10:57 IMPRESSION: 1. Patchy bilateral airspace opacities which could reflect atelectasis versus pneumonia. Labs Labs: Laboratory Results - last 24 hr 09/23/21 09/23/21 09/23/21 11:59 16:21 16:57 WBC RBC Hgb Hct MCV MCH MCHC RDW
[2021-09-24 14:00] VITALS: BP 115/70; PULSE 77; RESP 16; TEMP 36.9; O2SAT 96; BMI 37.9
[2021-09-24 14:34] LABS: Troponin I < 0.012 ng/mL (0.000-0.034)
[2021-09-24 16:33] LABS: Glucose Point of Care 270 mg/dl (65-105)
[2021-09-24] MEDS: metFORMIN HCL 500 MG TABLET PO (16:47)
[2021-09-24] MEDS: INSULIN GLARGINE (*BKC) 100 UNITS/ML 10 UNITS SUB-Q (21:19)
[2021-09-24] MEDS: INSULIN ASPART (*BKC) 100 UNITS/ML 8 UNITS SUB-Q (21:22)
[2021-09-24 21:23] VITALS: BP 124/70; PULSE 77; RESP 20; TEMP 36.6; O2SAT 96
[2021-09-24 23:00] LABS: Glucose Point of Care 336 mg/dl (65-105)
--- NOTE | 2021-09-25 | ECHO_ITS ---
Patient Info Name: Rachel Oliva Age: 45 years : 1975 Gender: Female Ht: 62 in Wt: 207 lbs BSA: 2.07 m2 HR: 72 bpm BP: 117 / 71 mmHg Heart Rhythm: Sinus Rhythm Technical Quality: Fair Exam Date: 09/25/2021 10:59 AM Exam Location: [facility] Exam Room: 259 Patient Status: Inpatient Admit Date: 09/23/2021 Staff Ordering Physician: Wendie Alvarado PA-C Hostler Helper: Mikala Azar RDCS Attending Provider: Wendie Alvarado PA-C Referring Physician: Jenny BAEZA; Exam Type: CA echo doppler color flow Study Info Indications - chest pain obesity marinelli Complete two-dimensional, color flow and Doppler transthoracic echocardiogram is performed. Summary 1. Technically difficult study with limited views. Regional wall motion assessment limited due to poor endomyocardial border definition several views. 2. Left ventricular chamber dimension is normal. 3. Left ventricular systolic function is normal, estimated at 65-70%. 4. There is no increased left ventricular wall thickness. 5. The left ventricular diastolic function is normal. 6. There is trace tricuspid valve regurgitation. 7. Mild pulmonary hypertension, estimated pulmonary arterial systolic pressure is 35-40 mmHg. Left Ventricle Left ventricular chamber dimension is normal. Left ventricular systolic function is normal, estimated at 65-70%. There is no increased left ventricular wall thickness. The left ventricular diastolic function is normal. Right Ventricle Right ventricular chamber dimension is normal. Right ventricular systolic function is normal. Left Atria Left atrial chamber dimension is normal. Right Atria Right atrial chamber dimension is normal. Aortic Valve The aortic valve is probable trileaflet. There is no aortic valve stenosis. There is no aortic valve regurgitation. Pulmonic Valve The pulmonic valve is not well visualized. There is trace pulmonic regurgitation. Mitral Valve The mitral valve has normal leaflets. There is trace mitral valve regurgitation. Tricuspid Valve The tricuspid valve leaflets are normal. There is trace tricuspid valve regurgitation. Mild pulmonary hypertension, estimated pulmonary arterial systolic pressure is 35-40 mmHg. Pericardium/Pleural The pericardium appears normal. There is no pericardial effusion. Aorta The aortic root size at the sinus of Valsalva is normal. Left Ventricular Outflow Tract Name Value Normal LVOT 2D LVOT Diameter 2.0 cm LVOT Doppler LVOT Peak Gradient 6 mmHg LVOT Mean Gradient 4 mmHg LVOT VTI 27 cm LVOT VTI/AV VTI Ratio 0.8 LVOT Stroke Volume 82 ml LVOT CO 17.5 l/min LVOT CI 8.4 l/min/m2 Pulmonic Valve Name Value Normal PV Dopp
[2021-09-25 05:05] VITALS: BP 117/71; PULSE 77; RESP 20; TEMP 36.4; O2SAT 100
[2021-09-25] MEDS: ONDANSETRON INJ 4 MG/2 ML VIAL IV PUSH (06:15)
[2021-09-25 08:04] LABS: Glucose Point of Care 196 mg/dl (65-105)
--- NOTE | 2021-09-25 08:40 | PM.PNGS ---
Progress Note: A&P Assessment and Plan (1) Abdominal wall abscess: Code(s): L02.211 - Cutaneous abscess of abdominal wall Status: Acute Assessment and Plan: doing well, local wound care c W to D drsg BID, abx, cultures pending, ok to dc home c f/u c Dr Velez in 1 wk Subjective Subjective Date/Time Seen: 09/25/21 08:40 feels better, some abdominal soreness Review of Systems Review of Systems: All systems reviewed & are unremarkable except as noted in HPI and below Exam Const: General: cooperative, comfortable and no acute distress Orientation/consciousness: patient oriented x3 Resp: Auscultation: clear to auscultation bilaterally Cardio: Rate: regular rate Rhythm: regular rhythm GI: Inspection: normal to inspection, non-distended and incision GI Palp: Yes Soft to palpation and Yes Tenderness to palpation present (GI) Other: wound examined and some fibrinous material debrided, packing removed, will do W to D c NS BID Objective Data Vital Signs Vital Signs: Vital Signs - 24 hr 09/24/21 14:00 09/24/21 21:23 09/25/21 05:05 Temperature 36.9 C 36.6 C 36.4 C L Pulse Rate 77 77 77 Respiratory Rate 16 20 20 Blood Pressure 115/70 124/70 117/71 Pulse Oximetry 96 96 100 Intake/Output Intake/Output: Intake & Output 09/22/21 09/23/21 09/24/21 09/25/21 23:59 23:59 23:59 23:59 Intake Total 3600 3120 3272 1090 Output Total 1700 2600 1800 800 Balance 5853 854 2072 290 Meds/Results Medications: Active Medications Generic Name Dose Route Start Last Admin Trade Name Freq PRN Reason Stop Dose Admin Dextrose 12.5 gm 09/25/21 08:04 Dextrose 50% 25 Gm/50 Ml Syringe IV PUSH PRN PRN Hypoglycemia Protocol Enoxaparin Sodium 40 mg 09/22/21 09:00 09/24/21 07:55 Enoxaparin 40 Mg/0.4 Ml Syringe SUB-Q 40 mg DAILY JOAN Administration Glucagon 1 mg 09/25/21 08:04 Glucagon For Inj 1 Mg Vial IM PRN PRN Hypoglycemia Protocol Glucose 15 gm 09/25/21 08:04 Glucose Oral Gel 15 Gm Of Glucse In 37.5 Gm Tube PO PRN PRN Hypoglycemia Protocol Hydromorphone HCl 1 mg 09/22/21 15:17 09/23/21 12:18 Hydromorphone Hcl Inj (*Crx) 1 Mg/Ml Syr IV PUSH 1 mg Q4H PRN Administration Pain Rated 7-10 Imipenem/Cilastatin Sodium 500 mg in 100 mls @ 300 mls/hr 09/22/21 04:00 09/25/21 05:58 Primaxin 500 Mg/D5w 100 Ml IVPB Infused Q6H JOAN Infusion Vancomycin HCl 1,750 mg in 500 mls @ 250 mls/hr 09/24/21 10:00 09/25/21 04:55 Vancomycin 1,750 Mg/D5w 500 Ml IVPB Infused Q8H JOAN Infusion Dextrose 1,000 mls @ 100 mls/hr 09/25/21 08:04 Dextrose 5% 1,000 Ml IVPB PRN PRN Hypoglycemia Protocol Insulin Aspart 4 - 8 units 09/25/21 08:10 Insulin Aspart (*Bkc) 100 Units/Ml SUB-Q TIDWM JOAN Protocol Insulin Glargine 20 units 09/25/21 21:00 Insulin Glargine (*Bkc) 100 Units/Ml SUB-Q HS JOAN Metformin HCl 500 mg 09/24/21 17:00 09/24/21 16:47 Metformin Hcl 500 Mg Tablet PO 500 mg BIDWM JOAN Administration Morphine Sulfate 2 mg 09/22/21 15:15 09/24/21 02:26 Morphine Sulfate (*Crx) 2 Mg/Ml Inj IV PUSH 2 mg Q4H PRN Administration Pain Rated 4-6 Ondansetron HCl 4 mg 09/21/21 21:51 09/25/21 06:15 Ondansetron Inj 4 Mg/2 Ml Vial IV PUSH 4 mg Q4H PRN Administration Nausea Radiology Results: ITS Impressions Abdomen/Pelvis CT 09/21/21 20:44 IMPRESSION: Multiple ventral abdominal and pelvic wall fat-containing hernias Large complicated fluid collection consistent with abscess, seroma or hematoma along the right parasagittal infraumbilical anterior abdominal/pelvic wall; inflammatory soft tissue stranding of the lower anterior abdominal and pelvic wall Hepatic steatosis Diverticulosis of the colon Chest X-Ray 09/24/21 10:57 IMPRESSION: 1. Patchy bilateral airspace opacities which could reflect atelectasis versus pneumonia.
[2021-09-25 09:10] LABS: Anion Gap 7 mmol/L (8-16); Basophils Percent Auto 0.6 % (0.2-1.2); Blood Urea Nitrogen 6 mg/dL (7-17); Calcium 8.7 mg/dL (8.4-10.2); Carbon Dioxide 28 mmol/L (22-30); Chloride 100 mmol/L (98-107); Eosinophils Absolute Auto 0.2 K/mm3 (0-0.3); Estimated CRCL calculation 152 ml/min; Estimated Glomerular Filt Rate > 60; Glucose 253 mg/dL (65-110); Hematocrit 39.3 % (37.0-47.0); Hemoglobin 13.4 g/dL (12.0-15.0); Immature Granulocyte Absolute 0.03 K/mm3 (0.00-0.031); Immature Granulocyte Percent A 0.4 % (0-0.5); Lymphocytes Absolute Auto 1.87 K/mm3 (0.9-3.2); Lymphocytes Percent Auto 27.6 % (18.3-44.2); Mean Corpuscular HGB Conc 34.1 g/dl (32-36); Mean Corpuscular Hemoglobin 29.7 pg (26-34); Mean Corpuscular Volume 87.1 fl (80-100); Mean Platelet Volume 9.3 fl (7.4-10.4); Monocytes Absolute Auto 0.6 K/mm3 (0.1-0.6); Monocytes Percent Auto 8.7 % (2.6-8.5); Neutrophils Percent Auto 59.7 % (45.5-73.1); Platelet Count Result 469 k/mm3 (150-375); Potassium 3.3 mmol/L (3.4-5.0); Red Blood Count 4.51 M/mm3 (4.2-5.4); Red Cell Distribution Width 12.8 % (11.5-14.5); Sodium 135 mmol/L (137-145); White Blood Count 6.8 K/mm3 (4.5-10.0)
[2021-09-25 09:16] LABS: Vancomycin Trough 19.2 ug/mL (10.0-20.0)
[2021-09-25] MEDS: ENOXAPARIN 40 MG/0.4 ML SYRINGE SUB-Q (09:37)
[2021-09-25] MEDS: metFORMIN HCL 500 MG TABLET PO (09:37)
[2021-09-25 11:46] LABS: Glucose Point of Care 267 mg/dl (65-105)
[2021-09-25] MEDS: INSULIN ASPART (*BKC) 100 UNITS/ML SUB-Q (12:34)
--- NOTE | 2021-09-25 13:29 | PM.DS ---
DS: Admitting Diagnosis Discharge Date 09/25/21 Admitting Diagnosis abdominal wound, sepsis DS: Discharge Diagnosis Discharge Diagnosis (1) Abdominal wall abscess: Code(s): L02.211 - Cutaneous abscess of abdominal wall Status: Acute Assessment and Plan: -Patient with appendectomy 5 years ago w/ complications in the postop period with wound infection and dehiscence -Now patient comes back with abdominal pain found to have complex abscess formation and multiple hernias -was given iv abx and transitioned to augmentin and doxy at d/c -Bedside I&D performed at bedside by general surgery. They plan to follow up with her outpt -Wound culture growing Streptococcus anginosus and Bacteroides fragilis, sensitivities pending at discharge and will be monitored until finalized -Blood cultures have no growth to date but will be monitored until finalized -Leukocytosis resolved. Fever and tachycardia resolved. (2) Uncontrolled diabetes mellitus: Code(s): E11.65 - Type 2 diabetes mellitus with hyperglycemia Status: Acute Assessment and Plan: Patient is very adamant about not doing insulin. I have given her metformin and glipizide as well as a glucose monitor. We had a long discussion about diabetes and information was given in [place]. She is going to establish with a primary care physician so this could be monitored. We discussed signs and symptoms of hypoglycemia as well. (3) Elevated liver enzymes: Code(s): R74.8 - Abnormal levels of other serum enzymes Status: Acute Assessment and Plan: Slightly elevated on admission which have normalized throughout her stay -CT suggests hepatic steatosis -Hepatitis panel negative (4) Sepsis: Code(s): A41.9 - Sepsis, unspecified organism Status: Acute Assessment and Plan: Noted on admission with elevated leukocytosis and and temperature, all have resolved -secondary to above (5) Hernia, ventral: Code(s): K43.9 - Ventral hernia without obstruction or gangrene Status: Acute Assessment and Plan: -Multiple ventral hernias, one with transverse colon that does not appear to be obstructed/incarcerated. Other ventral hernias appear to be containing fat on the CT scan. -Per surgery, no emergent surgical intervention needed at this time, but could discuss options for surgical repair in the future once her infection has resolved on an outpatient basis. -Further management outpatient per general surgery (6) Obesity (BMI 30-39.9): Code(s): E66.9 - Obesity, unspecified Status: Acute Assessment and Plan: Encouraged weight loss and lifestyle changes. (7) Chest pain: Code(s): R07.9 - Chest pain, unspecified Status: Acute Assessment and Plan: -Reports chest discomfort and sob w/ exertion, pt initially states started earlier in the stay but also notes it has been going on intermittently for awhile. The day of discharge she said it has completely resolved -echo shows a normal EF with no significant abnormalities. It does show mild pulmonary hypertension. -chest x-ray and CT show possible pneumonia. Patient states she is not really coughing but had a mild one earlier in the stay. Antibiotics Augmentin and doxycycline were given at discharge to treat possible pneumonia as the cause. she is to follow up with a pcp after discharge if this continues. -PE seems less likely since patient is chest pain and shortness of breath have resolved DS: Summary Hospital Course Hospital Course: Date of service 09/25/2021 Patient is a 45-year-old female who presented emergency room on 09-21-21 for abdominal pain and wound that was gradually worsening. Vitals in the ER were temperature 97?, pulse 98, respiratory rate 16, blood pressure 128/82, pulse ox 99 on room air. Initial white blood cell count 11.0. Renal glucose 304. UA not indicative of infection. Lactic acid normal. Abd
[2021-09-25 14:00] VITALS: BP 123/76; PULSE 77; RESP 20; TEMP 36.5; O2SAT 94
--- NOTE | 2021-09-29 09:58 | PC.NURSE ---
Blood cx are negative. Wound cx anaerobic shows Moderate growth of bacteroides fragilis. Aerobic cx shows light growth of Strep anginosus. HONEY Priest.
== END 2021-09-25 17:19 | disposition home or self-care (01) | DRG 710 ==
LOC: ANHED 21:53 → ANH2MED 22:21
PROVIDERS: Emergency Medicine; Physician Assistant; Surgery; Admitting Provider Internal Medicine; Emergency Provider General Practice; Visit Provider Physician Assistant
DX: A41.9 Sepsis, unspecified organism (principal); L02.211 Cutaneous abscess of abdominal wall; B95.4 Other streptococcus as the cause of diseases classified elsewhere; B96.6 Bacteroides fragilis [B. fragilis] as the cause of diseases classified elsewhere; K43.9 Ventral hernia without obstruction or gangrene; J18.9 Pneumonia, unspecified organism; E11.65 Type 2 diabetes mellitus with hyperglycemia; K76.0 Fatty (change of) liver, not elsewhere classified; E66.9 Obesity, unspecified; Z68.37 Body mass index [BMI] 37.0-37.9, adult; Z90.49 Acquired absence of other specified parts of digestive tract
CPT/HCPCS: 36415; 71045; 74177; 80048; 80053; 80074; 80202; 81001; 81025; 82948; 83036; 83605; 83690; 83735; 84484; 85025; 87040; 87070; 87075; 87076; 87077; 87205; 93005; 93306; 96361; 96365; 96366; 96367; 96372; 96375; 96376; 99285; A9270; G0378; G0379; J0131; J0743; J1170; J1650; J1815; J2270; J2405; J3370; J7030; J7040; J7120; Q9967

== ENCOUNTER 2021-12-27 12:13 | Outpatient (CLI) | payer SELFPAY ==
[2021-12-27 13:37] LABS: Add Urine Microscopic? YES; Appearance Urine Clear (Clear); Bilirubin Urine Negative (Negative); Blood Urine Negative (Negative); Color Urine Straw (Yellow); Glucose Urine UA 3+ mg/dL (Negative); Ketones Urine Negative (Negative); Leukocyte Esterase Ur Negative LEU/UL (Negative); Nitrate Urine Negative (Negative); Protein Urine Negative (Negative); RBC Urine 0-2 /hpf (0-2); Squamous Epithelial Cell Urine Rare /hpf (Few); Urobilinogen Urine Negative mg/dL (<2.0); WBC Urine 0-3 /hpf
[2021-12-27 13:38] LABS: Specific Grav Ur 1.032 (1.001-1.035)
== END 2021-12-27 12:14 | disposition home or self-care (01) ==
LOC: ANHLAB 12:14
PROVIDERS: Visit Provider Nurse Practitioner Family
DX: N89.8 Other specified noninflammatory disorders of vagina (principal)
CPT/HCPCS: 81001

== ENCOUNTER 2022-01-05 21:33 | Emergency (ER) | payer SELFPAY ==
--- NOTE | ~2022-01-05 | CT_ITS ---
EXAMINATION: CT abdomen pelvis w con DATE: 01/06/2022 04:00 INDICATION: Lower/mid abdominal pain for 2 days. TECHNIQUE: Computed tomography (CT) of the abdomen and pelvis was performed with 100 cc Omnipaque 350 intravenous contrast. Automated exposure control and iterative reconstruction technique were employe d. Exam dose: 1209.35 mGy-cm total exam DLP. COMPARISON: 09/21/2021 CT abdomen pelvis FINDINGS: There is patchy atelectasis in the lower lung zones. Normal heart size. Trace pericardial fluid. No pleural effusion. The liver, gallbladder, bile ducts, spleen, pancreas, pancreatic duct, and adrenal glands and kidneys are unremarkable. Normal caliber of the abdominal aorta. No intraperitoneal or retroperitoneal or pe lvic mass lesion or adenopathy or ascites. Small fat-containing umbilical hernia. There is nearly complete resolution of the largest, located fluid collection along the right parasagi ttal infraumbilical anterior abdominal/pelvic wall since 09/21/2021. There are infraumbilical ventral abdominal wall hernias, one containing nonobstructed transverse colo n, a lower ventral hernia containing small bowel; the small bowel herniation is a new finding since 11/21/2020. The herniated small bowel is distended with fluid. And measures up to 2.2 cm maximal diamet er. Mild partial closed loop obstruction is not excluded. Surgical consultation is recommended. Urinary bladder, uterus and adnexal areas are unremarkable. No intraperitoneal free air. No suspicious osteolytic or osteoblastic lesions are noted. IMPRESSION: Interval herniation of small bowel through a pre-existing infraumbilical ventral abdomin al wall hernia since 09/21/2021 with possible associated mild partial closed loop small bowel obstruct ion Chronic infraumbilical ventral abdominal wall hernia containing nonobstructed colon Diminished nearly resolved fluid collection along the infraumbilical anterior abdominal wall Reviewed, dictated and finalized at [facility] Reviewed, dictated and finalized at [facility] IMPRESSION: Interval herniation of small bowel through a pre-existing infraumb ilical ventral abdominal wall hernia since 09/21/2021 with possible associated m ild partial closed loop small bowel obstruction Chronic infraumbilical ventral abdominal wall hernia containing nonobstructed c olon Diminished nearly resolved fluid collection along the infraumbilical anterior a bdominal wall
[2022-01-05 21:40] VITALS: BP 140/81; PULSE 82; RESP 18; TEMP 36.4; O2SAT 99
[2022-01-05 23:38] LABS: Basophils Absolute Auto 0.1 K/mm3 (0.0-0.1); Basophils Percent Auto 0.7 % (0.2-1.2); Eosinophils Absolute Auto 0.1 K/mm3 (0-0.3); Eosinophils Percent Auto 1.9 % (0-4.4); Hematocrit 40.8 % (37.0-47.0); Hemoglobin 14.3 g/dL (12.0-15.0); Immature Granulocyte Absolute 0.01 K/mm3 (0.00-0.031); Immature Granulocyte Percent A 0.1 % (0-0.5); Lymphocytes Percent Auto 39.3 % (18.3-44.2); Mean Corpuscular Hemoglobin 29.6 pg (26-34); Mean Corpuscular Volume 84.5 fl (80-100); Mean Platelet Volume 9.7 fl (7.4-10.4); Monocytes Absolute Auto 0.6 K/mm3 (0.1-0.6); Monocytes Percent Auto 8.7 % (2.6-8.5); Neutrophils Absolute Auto 3.6 K/mm3 (1.3-6.7); Neutrophils Percent Auto 49.3 % (45.5-73.1); Platelet Count Result 285 k/mm3 (150-375); Red Blood Count 4.83 M/mm3 (4.2-5.4); Red Cell Distribution Width 13.1 % (11.5-14.5); White Blood Count 7.4 K/mm3 (4.5-10.0)
[2022-01-06 00:07] LABS: Alanine Aminotransferase 172 U/L (4-35); Albumin Level 3.8 g/dL (3.5-5.1); Alkaline Phosphatase 108 U/L (38-126); Anion Gap 9 mmol/L (8-16); Aspartate Amino Transferase 103 U/L (14-36); Bilirubin,Total 0.3 mg/dL (0.2-1.3); Blood Urea Nitrogen 11 mg/dL (7-17); Carbon Dioxide 22 mmol/L (22-30); Chloride 102 mmol/L (98-107); Estimated CRCL calculation 160 ml/min; Estimated Glomerular Filt Rate > 60; Glucose 416 mg/dL (65-110); Potassium 4.2 mmol/L (3.4-5.0); Sodium 133 mmol/L (137-145)
[2022-01-06] MEDS: KETOROLAC 30 MG/ML VIAL (*BKC) IV PUSH (03:25)
[2022-01-06] MEDS: SODIUM CHLORIDE 0.9% IV 1,000 ML 999 ML IV CONT (03:26)
[2022-01-06 03:30] VITALS: BP 112/74; PULSE 62; RESP 16; TEMP 36.6; O2SAT 99
[2022-01-06 03:37] LABS: Add Urine Microscopic? YES; Appearance Urine Clear (Clear); Bilirubin Urine Negative (Negative); Blood Urine Negative (Negative); Color Urine Colorless (Yellow); Glucose Urine UA 3+ mg/dL (Negative); Ketones Urine Negative (Negative); Leukocyte Esterase Ur Negative LEU/UL (Negative); Mucus Urine Rare /lpf; Nitrate Urine Negative (Negative); Protein Urine Negative (Negative); RBC Urine 0-2 /hpf (0-2); Specific Grav Ur 1.029 (1.001-1.035); Squamous Epithelial Cell Urine Rare /hpf (Few); Urobilinogen Urine Negative mg/dL (<2.0)
--- NOTE | 2022-01-06 03:43 | PC.NURSE ---
patient to ct at this time.
[2022-01-06 04:41] VITALS: BP 118/72; PULSE 70; RESP 18; O2SAT 98
--- NOTE | 2022-01-06 04:48 | ED.GENADULT ---
HPI - General Adult General Chief complaint: Abdominal Pain Stated complaint: abd pain Time Seen by Provider: 01/06/22 01:58 Source: RN notes reviewed History of Present Illness HPI narrative: Patient presents emergency department from home for abdominal wound. Patient states she had a history of an abscess in her lower midline abdominal wall from site of previous surgical incision she was seen at our hospital and October and at that time been seen by general surgery she has been following up with general surgery has been packing the wound has been healing well but she noted that it began to have drainage today she is with this she began to have some lower back pain she denies any fevers or chills abdominal pain nausea vomiting or any other symptoms states she is not currently on any antibiotics Related Data Home Medications Medication Instructions Recorded Confirmed ibuprofen 200 mg capsule 200 mg PO Q6H PRN 10/18/21 12/28/21 Allergies Allergy/AdvReac Type Severity Reaction Status Date / Time No Known Allergies Allergy Verified 12/27/21 10:36 Review of Systems Review of Systems: Gen.: Denies fevers or chills ENT: Denies congestion Respiratory: Denies shortness of breath or cough CV: Denies chest pain or palpitations GI: Denies abdominal pain nausea, emesis or diarrhea Musculoskeletal: Denies back pain or muscle pain Neuro: Denies numbness, tingling, weakness or focal weakness Skin: See HPI Except as documented, all other systems reviewed and negative PMFSH Past Medical History Medical History Diabetes mellitus DUB (dysfunctional uterine bleeding) Surgical History Surgical History History of appendectomy History of incision and drainage 09/21/21 Incision and drainage of abscess of the skin and subcutaneous tissues just below and to the right of the umbilicus and her old midline appendectomy scar Family History Family History Other No pertinent family history Social History Social History Social History: The patient is currently living in this area with her nephew and his . She moved here with them about 15 days ago from [place], [place]. She has no children. 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 She was moving to the area to start a new job as a nurse wound care here in a few weeks. Smoking status: Never smoker Additional smoking assessment comments: Very light smoker (not even daily) many years ago. Alcohol intake: never Substance use: never Gender identity (if verbalized by the patient): Female Spiritual care concerns: No Exam Narrative: APPEARANCE: No acute distress, nontoxic, resting in bed HEENT: Normocephalic, atraumatic, OMM RESPIRATORY: No respiratory distress, clear to auscultation bilaterally with no rhonchi wheezing or rales CARDIOVASCULAR: RRR s murmur ABDOMINAL: Soft nondistended nontender to palpation no rebound or guarding MUSCULOSKELETAl: Moves all extremities. No clubbing, cyanosis or edema. NEURO: Awake and alert. Following commands, speech normal, no focal deficits SKIN:: Warm, dry. Normal Color the midline abdomen just below the umbilicus has an open wound that does have some serous drainage packing is present and was removed there is no surrounding erythema nontender to palpation PSYCHIATRIC: Normal affect/mood Course Course Emergency Course: Reviewed old records Called and discussed with Dr. Gonzalez presentation work-up at this time recommends that the wound be repacked he request the patient started on Keflex feels patient may be discharged to follow-up as an outpatient Discussed with patient results of workup and diagnosis. Discussed need for follo
[2022-01-06] MEDS: CEPHALEXIN 500 MG CAPSULE PO (05:38)
[2022-01-06 05:52] LABS: Glucose Point of Care 266 mg/dl (65-105)
[2022-01-06 06:30] VITALS: BP 148/70; PULSE 72; RESP 18; TEMP 36.8; O2SAT 98
== END 2022-01-06 06:32 | disposition home or self-care (01) ==
PROVIDERS: Emergency Provider Emergency Medicine
DX: L02.211 Cutaneous abscess of abdominal wall (principal); E11.9 Type 2 diabetes mellitus without complications
CPT/HCPCS: 36415; 74177; 80053; 81001; 81025; 82948; 85025; 96361; 96374; 99284; A9270; J1885; J7030; Q9967

== ENCOUNTER 2022-09-09 06:20 | Emergency (ER) | payer SELFPAY ==
[2022-09-09 06:23] VITALS: BP 145/85; PULSE 76; RESP 20; TEMP 36.7; O2SAT 100
--- NOTE | 2022-09-09 08:00 | ED.GENADULT ---
HPI - General Adult General Chief complaint: Abdominal Pain Stated complaint: abdominal pain Time Seen by Provider: 09/09/22 07:04 History of Present Illness HPI narrative: Patient is a 46-year-old female who presents ER with concern for foreign body in her abdominal wall. Patient reports she was cleaning a chronic surgical wound that is healing by secondary intention with a Q-tip when the tip came off and stuck inside her. She is concerned it may cause additional infection. No pain. She has some stage discharge that has been chronic for her. Related Data Home Medications Medication Instructions Recorded Confirmed ibuprofen 200 mg capsule 200 mg PO Q6H PRN Pain 10/18/21 02/28/22 Allergies Allergy/AdvReac Type Severity Reaction Status Date / Time No Known Allergies Allergy Verified 02/22/22 08:49 Review of Systems Review of Systems: All systems reviewed & are unremarkable except as noted in HPI and below Constitutional: Constitutional: Denies chills and Denies fever(s) ENT: Denies nasal congestion and Denies sore throat Respiratory: Respiratory: Denies cough and Denies dyspnea Gastrointestinal: Gastrointestinal: Denies abdominal pain, Reports nausea and Reports vomiting Integumentary/Breasts: Skin/Breast: Denies erythema and Denies rash Comments: chronic skin wound PMFSH Past Medical History Medical History Diabetes mellitus DUB (dysfunctional uterine bleeding) Surgical History Surgical History History of appendectomy History of incision and drainage 09/21/21 Incision and drainage of abscess of the skin and subcutaneous tissues just below and to the right of the umbilicus and her old midline appendectomy scar Family History Family History Other No pertinent family history Social History Social History Social History: The patient is currently living in this area with her nephew and his . She moved here with them about 15 days ago from [place], [place]. She has no children. 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 She was moving to the area to start a new job as a intervention specialist here in a few weeks. Smoking status: Former smoker Additional smoking assessment comments: Very light smoker (not even daily) many years ago. Alcohol intake: never Substance use: never Gender identity (if verbalized by the patient): Female Spiritual care concerns: No Exam Narrative: GENERAL: Well-appearing, well-nourished, and in no acute distress. HEAD: Normocephalic, atraumatic. CHEST: Clear to auscultation. No respiratory distress. HEART: Regular rate and rhythm. N Normal peripheral pulses. ABDOMEN: Soft, nontender, nondistended. EXTREMITIES: Normal range of motion. No edema. SKIN: Warm, dry, no rash. Healing wound infraumbilically with some cloudy discharge. NEURO: Alert and oriented x3. PSYCH: Normal mood and affect. Course Course Emergency Course: Wound irrigated and hemostats used to remove large Q-tip cotton. Wound irrigated again patient able be discharged. Vital Signs Vital signs: Vital Signs Temperature 98.1 F 09/09/22 06:23 Pulse Rate 76 09/09/22 06:23 Respiratory Rate 20 09/09/22 06:23 Blood Pressure 145/85 H 09/09/22 06:23 Pulse Oximetry 100 09/09/22 06:23 Oxygen Delivery Room Air 09/09/22 06:23 Temperature 98.1 F 09/09/22 06:23 Pulse Rate 76 09/09/22 06:23 Respiratory Rate 20 09/09/22 06:23 Blood Pressure 145/85 H 09/09/22 06:23 Pulse Oximetry 100 09/09/22 06:23 Oxygen Delivery Room Air 09/09/22 06:23 Procedures Foreign Body Removal Foreign Body #1: Foreign Body Removal Date: 09/09/22 Foreign Body
[2022-09-09 08:27] VITALS: BP 118/77; PULSE 68; RESP 12; O2SAT 98
== END 2022-09-09 08:30 | disposition home or self-care (01) ==
PROVIDERS: Emergency Provider Emergency Medicine
DX: M79.5 Residual foreign body in soft tissue (principal); Z87.891 Personal history of nicotine dependence
CPT/HCPCS: 99282

== ENCOUNTER 2022-10-26 18:29 | Emergency (ER) | payer SELFPAY ==
[2022-10-26 18:40] VITALS: BP 125/81; PULSE 83; RESP 16; TEMP 36.6; O2SAT 99
--- NOTE | 2022-10-26 19:00 | ED.URI ---
HPI - URI/Sore Throat General Chief Complaint: Upper Respiratory Infection Stated Complaint: Fever,Vomiting,Headache Time Seen by Provider: 10/26/22 18:45 Source: patient Mode of arrival: ambulatory Limitations: no limitations History of Present Illness HPI Narrative: Tere is a 46-year-old female patient presenting to clinic today with complaints of fever, vomiting, headache, nasal congestion, and sore throat x1 week. She reports highest fever was 102? F she has not had a fever in over 24 hours per family. MD elicited complaint: sore throat and nasal congestion Related Data Home Medications Medication Instructions Recorded Confirmed Insulin 10/26/22 Omeprazole 10/26/22 Zofran 10/26/22 Allergies Allergy/AdvReac Type Severity Reaction Status Date / Time No Known Allergies Allergy Verified 10/26/22 18:43 Review of Systems Review of Systems: Pertinent positives per HPI. Patient denies any rash, visual changes, dizziness, shortness of breath, chest pain, palpitations, nausea, vomiting, diarrhea, constipation, abdominal pain, or any urinary issues. PMFSH Past Medical History Medical History Diabetes mellitus DUB (dysfunctional uterine bleeding) Surgical History Surgical History History of appendectomy History of incision and drainage 09/21/21 Incision and drainage of abscess of the skin and subcutaneous tissues just below and to the right of the umbilicus and her old midline appendectomy scar Family History Family History Other No pertinent family history Social History Social History Social History: The patient is currently living in this area with her nephew and his . She moved here with them about 15 days ago from [place], [place]. She has no children. 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 Smoking status: Former smoker Additional smoking assessment comments: Very light smoker (not even daily) many years ago. Alcohol intake: never Substance use: never Gender identity (if verbalized by the patient): Female Spiritual care concerns: No Comments At the time of my signature, I reviewed and agree with the nursing past medical, surgical, social, and family history. There is no relevant family history pertinent to the patient complaint. Exam Narrative: General: Well-developed, obese, in no apparent distress Head: Normocephalic, atraumatic Eyes: Pupils equally round and reactive to light bilaterally, EOM intact, sclera and conjunctive clear, no discharge, lids normal Ears: TMs intact and dull, ear canals clear, no drainage, grossly hearing normal. Nose: Nares patent, clear nasal discharge, no inflammation, no sinus tenderness. Mouth: Oral pharynx without lesions or masses, good dentition, MMM. oropharynx red with tonsillar enlargement Neck: Supple, trachea midline, mild enlargement of anterior cervical nodes, no thyroid masses or goiter palpable. Cardio: Regular rate and rhythm, s1 and s2 normal, no murmur appreciated. Resp: Clear to auscultation bilaterally, no rhonchi, rales, wheezing or rubs Course Course Emergency Course: Portions of this record may have been created with voice recognition software. Level of Care: Express Care Visit Vital Signs Vital signs: Vital Signs Temperature 36.6 C 10/26/22 18:40 Pulse Rate 83 10/26/22 18:40 Respiratory Rate 16 10/26/22 18:40 Blood Pressure 125/81 10/26/22 18:40 Pulse Oximetry 99 10/26/22 18:40 Oxygen Delivery Room Air 10/26/22 18:40 Temperature 36.6 C 10/26/22 18:40 Pulse Rate
== END 2022-10-26 19:23 | disposition home or self-care (01) ==
PROVIDERS: Emergency Provider Nurse Practitioner Family
DX: J06.9 Acute upper respiratory infection, unspecified (principal); B34.9 Viral infection, unspecified; R05.9 Cough, unspecified; Z87.891 Personal history of nicotine dependence; E11.9 Type 2 diabetes mellitus without complications
CPT/HCPCS: 87081; 87880; 99213; G0463

== ENCOUNTER 2025-11-13 20:10 | Emergency (ER) | payer SELFPAY ==
[2025-11-13 20:13] VITALS: BP 140/87; PULSE 80; RESP 16; TEMP 36.6; O2SAT 98
--- NOTE | 2025-11-13 22:28 | PC.NURSE ---
Pt states they are choosing to leave due to wait time being to long, pt leaving before seeing provider
== END 2025-11-13 22:49 | disposition left against medical advice (07) ==
DX: R11.2 Nausea with vomiting, unspecified (principal)
CPT/HCPCS: 99199